=== PATIENT | female | born 1995 | race Caucasian/White ===

== ENCOUNTER 2017-03-25 07:12 | Emergency (ER) | payer BC ==
[~2017-03-25] VITALS: Ht 160 cm; Wt 63.5 kg
[2017-03-25 07:14] VITALS: BP_SYST 132
[2017-03-25 07:52] LABS: BASOPHILS % (AUTO) 0.3 % (0.0-2.0); EOSINOPHILS % (AUTO) 0.3 % (0.0-4.0); HEMATOCRIT 40.6 % (36-48); HEMOGLOBIN 13.9 g/dL (12.0-16.0); LYMPHOCYTES # (AUTO) 1.6 K/uL (1.0-5.5); LYMPHOCYTES % (AUTO) 11.7 % (20.5-51.5); MEAN CORPUSCULAR HEMOGLOBIN 30 pg (27-31); MEAN CORPUSCULAR HGB CONC 34 % (32-36); MEAN CORPUSCULAR VOLUME 87 fL (79.0-98.0); MONOCYTES # (AUTO) 0.3 K/uL (0.0-1.0); MONOCYTES % (AUTO) 2.6 % (1.7-9.3); NEUTROPHILS # (AUTO) 11.5 K/uL (1.8-7.7); NEUTROPHILS % (AUTO) 85.1 % (40.0-70.0); PLATELET COUNT (AUTO) 271 K/uL (130-430); RED BLOOD CELL COUNT(AUTO) 4.65 MIL/uL (4.2-6.2); RED CELL DISTRIBUTION WIDTH 13.4 % (9.0-15.0); WHITE BLOOD COUNT (AUTO) 13.4 K/uL (4.8-10.8)
[2017-03-25 07:56] LABS: BILIRUBIN,URINE NEGATIVE (NEGATIVE); BLOOD, URINE NEGATIVE (NEGATIVE); CLARITY/URINE SL HAZY (CLEAR); COLOR,URINE YELLOW (YELLOW); GLUCOSE,URINE NEGATIVE (NEGATIVE); KETONES,URINE NEGATIVE (NEGATIVE); LEUKOCYTE ESTERASE ,URINE NEGATIVE (NEGATIVE); NITRITE, URINE NEGATIVE (NEGATIVE); PH,URINE 5.5 (5.0-8.0); PROTEIN URINE NEGATIVE (NEGATIVE); UROBILINOGEN,URINE 0.2 (0.2-1.0)
[2017-03-25] MEDS ORDERED: NACL 0.9% 1,000 ML IV ONE (08:00)
[2017-03-25] MEDS ORDERED: MORPHINE 4 MG/ML INJ. SYRINGE IVP ONE (08:00)
[2017-03-25 08:19] LABS: CALCIUM 8.5 mg/dL (8.4-11.0); CREATININE 0.75 mg/dL (0.55-1.30)
[2017-03-25 08:23] LABS: ALBUMIN 3.9 g/dL (3.4-4.8); TOTAL BILIRUBIN 0.3 mg/dL (0.0-1.0)
[2017-03-25 09:03] VITALS: BP_SYST 130
== END 2017-03-25 09:03 | disposition home or self-care (01) ==
LOC: SED 07:12
DX: T62.8X1A Toxic effect of other specified noxious substances eaten as food, accidental (unintentional), initial encounter (principal); R19.7 Diarrhea, unspecified; J45.909 Unspecified asthma, uncomplicated; Z88.1 Allergy status to other antibiotic agents; Y92.89 Other specified places as the place of occurrence of the external cause
CPT/HCPCS: 36415; 80053; 81003; 81025; 83690; 85025; 96361; 96374; 99284; J2270; J7030

== ENCOUNTER 2018-08-26 08:04 | Emergency (ER) | payer BC ==
[~2018-08-26] VITALS: Ht 160 cm; Wt 61.2 kg
[2018-08-26 08:05] VITALS: BP_SYST 136
[2018-08-26 08:51] VITALS: BP_SYST 125
== END 2018-08-26 08:51 | disposition home or self-care (01) ==
LOC: SED 08:04
DX: M25.522 Pain in left elbow (principal); M79.10 Myalgia, unspecified site; J45.909 Unspecified asthma, uncomplicated; Z88.1 Allergy status to other antibiotic agents; V89.2XXA Person injured in unspecified motor-vehicle accident, traffic, initial encounter; Y93.89 Activity, other specified; Y92.410 Unspecified street and highway as the place of occurrence of the external cause; Y99.8 Other external cause status
CPT/HCPCS: 81025; 99283

== ENCOUNTER 2019-03-22 21:29 | Emergency (ER) | payer BC ==
[~2019-03-22] VITALS: Ht 160 cm; Wt 59.0 kg
[2019-03-22 21:29] VITALS: BP_SYST 123
--- NOTE | 2019-03-22 21:29 | NUR ---
Pt placed to ER bed 06, to gown, to gm video. Report given to BRIGHT Juarez.
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
--- NOTE | 2019-03-22 21:35 | NUR ---
ER Dr. Card at bedside examining patient.
[2019-03-22] MEDS ORDERED: NACL 0.9% 1,000 ML IV ONE ×2 (21:39→22:30)
[2019-03-22 21:52] LABS: BASOPHILS % (AUTO) 0.4 % (0.0-2.0); EOSINOPHILS # (AUTO) 0.1 K/uL (0.0-0.4); EOSINOPHILS % (AUTO) 0.8 % (0.0-4.0); HEMATOCRIT 42.4 % (36-48); HEMOGLOBIN 14.3 g/dL (12.0-16.0); LYMPHOCYTES # (AUTO) 3.8 K/uL (1.0-5.5); LYMPHOCYTES % (AUTO) 40.6 % (20.5-51.5); MEAN CORPUSCULAR HEMOGLOBIN 30 pg (27-31); MEAN CORPUSCULAR HGB CONC 34 % (32-36); MEAN CORPUSCULAR VOLUME 90 fL (79.0-98.0); MONOCYTES # (AUTO) 0.7 K/uL (0.0-1.0); NEUTROPHILS # (AUTO) 4.7 K/uL (1.8-7.7); NEUTROPHILS % (AUTO) 50.2 % (40.0-70.0); PLATELET COUNT (AUTO) 305 K/uL (130-430); RED BLOOD CELL COUNT(AUTO) 4.72 MIL/uL (4.2-6.2); RED CELL DISTRIBUTION WIDTH 14.1 % (9.0-15.0); WHITE BLOOD COUNT (AUTO) 9.3 K/uL (4.8-10.8)
--- NOTE | 2019-03-22 21:58 | NUR ---
# 14 FR In and Out catheter with use of sterile technique. Immediate return of 1000 ml clear yellow urine noted. Urine sample collected and sent to lab. Pt tolerated procedure well.
[2019-03-22 22:04] LABS: CREATININE 0.94 mg/dL (0.55-1.30); POTASSIUM 3.5 mmol/L (3.5-5.1)
[2019-03-22 22:08] LABS: ALBUMIN 3.9 g/dL (3.4-4.8); TOTAL BILIRUBIN 0.1 mg/dL (0.0-1.0)
[2019-03-22 22:16] LABS: BARBITURATE, URINE NEGATIVE (NEG <=200); BENZODIAZEPINE, URINE NEGATIVE (NEG <=150); CANNABINOID, URINE NEGATIVE (NEG <=50); COCAINE, URINE NEGATIVE (NEG <=150); METHAMPHETAMINES SCREEN,URINE NEGATIVE (NEG <=500); OPIATE, URINE NEGATIVE (NEG <=100); PHENCYCLIDINE SCREEN,URINE NEGATIVE (NEG <=25); UR TRICYCLIC ANTIDEPRESSANTS NEGATIVE (NEG <=300); URINE AMPHETAMINE NEGATIVE (NEG <=500); URINE METHADONE NEGATIVE (NEG <=200); URINE OXYCODONE SCREEN NEGATIVE (NEG <=100); URINE PROPOXYPHENE SCREEN NEGATIVE (NEG <=300)
[2019-03-22] MEDS ORDERED: ALBU8.5H8 INH (22:21)
--- NOTE | 2019-03-22 22:21 | NUR ---
Medication reconciliation completed with information provided by mother. Any prior medication reconciliation on file was reviewed and corrected.
--- NOTE | 2019-03-22 22:43 | NUR ---
patient went to CT in stable condition.
--- NOTE | 2019-03-22 22:55 | NUR ---
patient returned from CT in stable condition.
--- NOTE | 2019-03-22 23:35 | NUR ---
patient sleeping comfortably in bed. no acute distress, will continue to monitor.
--- NOTE | 2019-03-23 00:33 | NUR ---
patient sleeping comfortably in bed. no acute distress, will continue to monitor.
--- NOTE | 2019-03-23 01:35 | NUR ---
Rise and fall of chest is symmetrical. VSS. Pt sleeping in bed. No acute distress, will continue to monitor. Mother at bedside.
--- NOTE | 2019-03-23 02:50 | NUR ---
Pt is awake and alert. Pt AAO x 4. Dr. Card made aware.
[2019-03-23 03:06] VITALS: BP_SYST 121
--- NOTE | 2019-03-23 03:06 | NUR ---
Patient given written and verbal discharge instructions and verbalizes understanding. ER MD discussed with patient the results and treatment provided. Patient in stable condition. ID arm band removed. IV catheter removed intact and dressing applied, no active bleeding. No Rx given. Patient educated on pain management and to follow up with PMD. Pain Scale 0. Opportunity for questions provided and answered. Medication side effect fact sheet provided.
== END 2019-03-23 03:06 | disposition home or self-care (01) ==
LOC: SED 21:29
DX: F10.129 Alcohol abuse with intoxication, unspecified (principal); R41.82 Altered mental status, unspecified; J45.909 Unspecified asthma, uncomplicated; Z88.1 Allergy status to other antibiotic agents; Y90.8 Blood alcohol level of 240 mg/100 ml or more
CPT/HCPCS: 36415; 70450; 80053; 80307; 81025; 83690; 85025; 96360; 96361; 99284; G0482; J7030

== ENCOUNTER 2019-07-08 12:46 | Emergency (ER) | payer BC, OTHER ==
[~2019-07-08] VITALS: Ht 160 cm; Wt 67.1 kg
[~2019-07-08 12:46] MED LIST: ALBU8.5H8 INH
[2019-07-08 12:55] VITALS: BP_SYST 146
[2019-07-08 13:22] LABS: BILIRUBIN,URINE NEGATIVE (NEGATIVE); BLOOD, URINE NEGATIVE (NEGATIVE); CLARITY/URINE CLEAR (CLEAR); COLOR,URINE YELLOW (YELLOW); GLUCOSE,URINE NEGATIVE (NEGATIVE); KETONES,URINE NEGATIVE (NEGATIVE); LEUKOCYTE ESTERASE ,URINE NEGATIVE (NEGATIVE); NITRITE, URINE NEGATIVE (NEGATIVE); PH,URINE 6.5 (5.0-8.0); PROTEIN URINE NEGATIVE (NEGATIVE); UROBILINOGEN,URINE 0.2 (0.2-1.0)
[2019-07-08 13:38] LABS: BASOPHILS % (AUTO) 0.6 % (0.0-2.0); EOSINOPHILS # (AUTO) 0.1 K/uL (0.0-0.4); EOSINOPHILS % (AUTO) 1.1 % (0.0-4.0); HEMATOCRIT 40.5 % (36-48); HEMOGLOBIN 13.5 g/dL (12.0-16.0); LYMPHOCYTES # (AUTO) 1.9 K/uL (1.0-5.5); LYMPHOCYTES % (AUTO) 28.5 % (20.5-51.5); MEAN CORPUSCULAR HEMOGLOBIN 30 pg (27-31); MEAN CORPUSCULAR HGB CONC 33 % (32-36); MEAN CORPUSCULAR VOLUME 90 fL (79.0-98.0); MONOCYTES # (AUTO) 0.5 K/uL (0.0-1.0); NEUTROPHILS # (AUTO) 4.2 K/uL (1.8-7.7); NEUTROPHILS % (AUTO) 62.8 % (40.0-70.0); PLATELET COUNT (AUTO) 256 K/uL (130-430); RED CELL DISTRIBUTION WIDTH 14.4 % (9.0-15.0); WHITE BLOOD COUNT (AUTO) 6.7 K/uL (4.8-10.8)
[2019-07-08 13:44] LABS: CALCIUM 8.7 mg/dL (8.4-11.0); CREATININE 0.96 mg/dL (0.55-1.30); POTASSIUM 4.2 mmol/L (3.5-5.1)
[2019-07-08 13:48] LABS: ALBUMIN 3.6 g/dL (3.4-4.8); TOTAL BILIRUBIN 0.3 mg/dL (0.0-1.0)
--- NOTE | 2019-07-08 17:30 | NUR ---
Patient to ER bed 8 to gown for evaluation. Side rails up.
--- NOTE | 2019-07-08 17:45 | NUR ---
Patient presents to ER C/O abdominal pain . Patient A&Ox4, ambulatory to ER, afebrile, skin pink and warm, pain 07/27, denies N/V/D. Patient states she has right side abdominal pain since jn pain 07/27 to 12/27.
--- NOTE | 2019-07-08 18:30 | NUR ---
# 20 gauge angiocath placed to LEFT FOREARM. Use of asceptic technique. Opsite placed over site. Blood return noted. Blood for lab drawn from site. Flushed with 10 cc of normal saline. No evidence of infiltration noted. Patient tolerated well.
--- NOTE | 2019-07-08 19:21 | NUR ---
Pt denies c/o pain or discomfort if not moving, otherwise abdominal pain is "excruciating." Denies N/V/D. Mother at bedside no needs verbalized at this time.
--- NOTE | 2019-07-08 19:21 | NUR ---
REPORT GIVEN TO ROSEANNE NOVOA
--- NOTE | 2019-07-08 19:40 | NUR ---
Dr. De Dios at bedside.
[2019-07-08] MEDS ORDERED: KETOROLAC TROMETHAMINE 30 MG VIAL IVP ONE (20:00)
--- NOTE | 2019-07-08 20:32 | NUR ---
Pt to U/S via W/C in stable condition.
--- NOTE | 2019-07-08 21:05 | NUR ---
Pt returns from U/S. No needs verbalized at this time.
--- NOTE | 2019-07-08 22:10 | NUR ---
Dr. De Dios at bedside to update pt on POC.
[2019-07-08 22:38] VITALS: BP_SYST 128
--- NOTE | 2019-07-08 22:38 | NUR ---
Patient given written and verbal discharge instructions and verbalizes understanding. ER MD discussed with patient the results and treatment provided. Patient in stable condition. ID arm band removed. IV catheter removed intact and dressing applied, no active bleeding. Rx of Motrin given. Patient educated on pain management and to follow up with PMD. Pain Scale 3/10. Opportunity for questions provided and answered. Medication side effect fact sheet provided.
== END 2019-07-08 22:38 | disposition home or self-care (01) ==
LOC: SED 12:46
DX: R10.31 Right lower quadrant pain (principal); J45.909 Unspecified asthma, uncomplicated; Z88.1 Allergy status to other antibiotic agents
CPT/HCPCS: 36415; 74176; 76830; 76857; 80053; 81003; 81025; 83690; 85025; 96374; 99285; J1885